=== PATIENT | female | born 1985 | race Caucasian/White ===

== ENCOUNTER 2018-01-23 22:01 | Emergency (ER) | END 2018-01-24 03:23 | disposition home or self-care (01) ==

== ENCOUNTER 2018-10-12 21:51 | Emergency (ER) | payer BC ==
[~2018-10-12] VITALS: Ht 157.5 cm; Wt 65.9 kg
[~2018-10-12 21:51] MED LIST: FAMO-96 PO; NAPR-985 PO
[2018-10-12 21:59] VITALS: Ht 157.5 cm; Wt 65.9 kg
[2018-10-12] MEDS ORDERED: ONDANSETRON 4 MG INJ IV STA (23:15)
[2018-10-12] MEDS ORDERED: SOD CHLORIDE 0.9% 500 ML IV STA (23:15)
--- NOTE | 2018-10-12 23:24 | ERD ---
ER Documentation Chief Complaint Chief Complaint PANIC ATTACK/ANXIETY X1WK ON/OFF; MOM IN HOSPITAL RECENTLY HPI Patient is a 32 years old female with PMHx of ovarian cyst presenting to the clinic for chest pain and anxiety x 1 week. Patient reports that her mother in law is in the ICU while comatose. Patient reports of chest pain and feeling weak. Patient reports of new onset abdominal pain, pelvic pain, bloating, nausea, chills, bladder fullness, and urinary frequency. Patient denies cough, chest congestion, SOB, fever, night sweats, coryza, dysuria, vaginal discharge and back pain. Patient admits to taking left over antibiotics without resolution. Patient cannot recall antibiotic name. Patient denies suicidal ideation. ROS All systems reviewed and are negative except as per history of present illness. Medications Home Meds Active Scripts Ibuprofen* (Motrin*) 800 Mg Tab, 800 MG PO Q6, #30 TAB Prov:AGATA SAM PA-C 10/13/18 Nitrofurantoin Monohyd Macrocr* (Macrobid*) 100 Mg Capsr, 100 MG PO BID for 7 Days, #14 CAP Prov:AGATA SAM PA-C 10/13/18 Famotidine* (Pepcid*) 20 Mg Tablet, 20 MG PO BID for 10 Days, #20 TAB Prov:KANCHAN,DAVID 01/24/18 Naproxen* (Naprosyn*) 500 Mg Tablet, 500 MG PO BID PRN for PAIN AND/OR INFLAMMATION, #30 TAB Prov:KANCHAN,DAVID 01/24/18 Allergies Allergies: Coded Allergies: No Known Allergy (Unverified , 10/12/18) PMhx/Soc History of Surgery: No Hx Miscellaneous Medical Probl: Yes (anxiety) Hx Alcohol Use: No Hx Substance Use: No Hx Tobacco Use: No Smoking Status: Never smoker Physical Exam Vitals Vital Signs Date Temp Pulse Resp B/P (MAP) Pulse Ox O2 O2 Flow FiO2 Time Delivery Rate 10/13/18 98.7 84 18 113/57 99 Room Air 02:24 (75) 10/12/18 97.9 96 19 120/61 98 21:59 (80) Physical Exam Const: No acute distress. Mild lethargy. Head: Atraumatic Eyes: Normal Conjunctiva ENT: Normal External Ears, Nose and Mouth. Neck: Full range of motion. No meningismus. Resp: Clear to auscultation bilaterally Cardio: Regular rate and rhythm, no murmurs Abd: Soft, non tender, non distended. Normal bowel sounds. Negative Rovsing sign, Borrero sign, McBurney's point tenderness, rebound tenderness, guarding, Sherrard sign, [place] sign. No suprapubic tenderness. Skin: No petechiae or rashes Back: No midline or flank tenderness. No CVAT. Ext: No cyanosis, or edema Neur: Awake and alert Psych: Normal Mood and Affect Result Diagram: 10/12/18232710/12/182327 Results 24 hrs Laboratory Tests Test 10/12/18 23:28 10/12/18 23:33 White Blood Count 12.0 10^3/ul Red Blood Count 4.34 10^6/ul Hemoglobin 12.6 g/dl Hematocrit 37.9 % Mean Corpuscular Volume 87.3 fl Mean Corpuscular Hemoglobin 29.0 pg Mean Corpuscular Hemoglobin Concent 33.2 g/dl Red Cell Distribution Width 11.9 % Platelet Count 240 10^3/UL Mean Platelet Volume 10.9 fl Immature Granulocytes % 0.500 % Neutrophils % 73.9 % Lymphocytes % 17.3 % Monocytes % 7.2 % Eosinophils % 0.6 % Basophils % 0.5 % Nucleated Red Blood Cells % 0.0 /100WBC Immature Granulocytes # 0.060 10^3/ul Neutrophils # 8.9 10^3/ul Lymphocytes # 2.1 10^3/ul Monocytes # 0.9 10^3/ul Eosinophils # 0.1 10^3/ul Basophils # 0.1 10^3/ul Nucleated Red Blood Cells # 0.0 10^3/ul Urine Color STRAW Urine Clarity CLEAR Urine pH 6.0 Urine Specific [place] 1.008 Urine Ketones NEGATIVE mg/dL Urine Nitrite NEGATIVE mg/dL Urine Bilirubin NEGATIVE mg/dL Urine Urobilinogen NEGATIVE mg/dL Urine Leukocyte Esterase 1+ [place]/ul Urine Microscopic RBC 2 /HPF Urine Microscopic WBC 5 /HPF Urine Squamous Epithelial Cells FEW /HPF Urine Bacteria FEW /HPF Urine Mucus FEW /HPF Urine Hemoglobin 1+ mg/dL Urine Glucose NEGATIVE mg/dL Urine Total Protein NEGATIVE mg/dl Sodium Level 139 mmol/L Potassium Level 3.6 mmol/L Chloride Level 104 mmol/L Carbon Dioxide Level 27 mmol/L Anion Gap 8 Blood Urea Nitrogen 12 mg/dl Creatinine 0.60 mg/dl Est Glomerular Filtrat Rate mL/min > 60 mL/min Glucose Level 113 mg/dl Calcium Level 10.0 mg/dl Total Bilirubin 0.5 mg/dl Direct Bilirubin 0.00 mg/dl Indirect Bilirubin 0.5 mg/dl Aspartate Amino Transf (AST/SGOT) 19 IU/L Alanine Aminotransferase (ALT/SGPT) 30 IU/L Alkaline Phosphatase 72 IU/L Total Protein 7.9 g/dl Albumin 4.5 g/dl Globulin 3.40 g/dl Albumin/Globulin Ratio 1.32 Lipase 87 U/L POC Beta HCG, Qualitative NEGATIVE Current Medications Medications Dose Sig/Lluvia Start Time Status Last (Trade) Ordered Route PRN Stop Time Admin Dose Reason Admin Sodium 500 ml @ Q1H STAT 10/12/18 DC 10/12/18 Chloride 500 mls/hr IV 23:15 23:34 10/13/18 00:14 Ondansetron 4 mg ONCE STAT 10/12/18 DC 10/12/18 HCl (Zofran IV 23:15 23:34 Inj) 10/12/18 23:17 Procedures/MDM Patient was seen and evaluated for anxiety and abdominal pain. EKG showed NSR (no signs of ischemia or ST elevation). CBC, CMP, Lipase, Urinalysis revealed mild leukocytosis and leukocyte esterase signifying UTI. Pelvic ultrasound as per patient's request is unremarkable. Patient was given 500mL NS IV and Zofran IV with improvement of symptoms. Patient reports anxiety resolved. Low suspicion of cholecystitis, appendicitis, colitis, sepsis, pancreatitis. Patient is stable and ready for discharge. F/U with PCP for psychiatry referral. Patient will be treated with Macrobid and Ibuprofen. Departure Diagnosis: Primary Impression: Anxiety Additional Impression: UTI (urinary tract infection) Urinary tract infection type: site unspecified Hematuria presence: without hematuria Qualified Codes: N39.0 - Urinary tract infection, site not specified Condition: Stable Patient Instructions: Anxiety Reaction, Understanding Urinary Tract Infections (UTIs) Referrals: [facility] Additional Instructions: Patient advised to return to the ED immediately for new or worsening symptoms. Patient advised to follow up with primary care provider in the next 24-48 hours. Patient verbalized understanding and agrees with treatment plan and course of action. If patient has no primary care they may follow up with [facility] + [id number] [place] [address] or [facility] [address] [place] [address] or [facility] [address] [place] [address] AGATA SAM PA-C Oct 12, 2018 23:24
[2018-10-13 02:24] VITALS: BP 113/57; PULSE 84; RESP 18
[2018-10-13] MEDS ORDERED: IBUP800T48 PO (03:05)
[2018-10-13] MEDS ORDERED: NITR-58 PO (03:05)
== END 2018-10-13 03:12 | disposition home or self-care (01) ==
LOC: FTE 21:51
DX: F41.9 Anxiety disorder, unspecified (principal); N39.0 Urinary tract infection, site not specified
CPT/HCPCS: 36415; 76856; 80053; 81001; 81025; 83690; 85025; 93005; 96374; 99285; J2405; J7040